=== PATIENT | female | born 1935 | race Caucasian/White ===

== ENCOUNTER → 2017-02-12 | Outpatient (CLI) | payer MEDICARE ==
[~2017-02-12] MED LIST: APIX5TAB PO; B6 PO; CHOL500020 PO; CYAN500L4 PO; FAMO20TA7 PO; FOLI20CA PO; GLUC1CAP48 PO; HYDR-3138 PO; LOSA1TAB16 PO; MAGN400T36 PO; METO-99 PO; METO5TAB2 PO; NAPR-874 PO; NAPR220T77 PO; ONDA-39 PO; SIMV20TA3 PO; SPIR25TA3 PO; UBID100C24 PO
== END | disposition home or self-care (01) ==
LOC: CVU 14:43
PROVIDERS: ATTEND Internal Medicine Cardiovascular Disease
DX: I08.3 Combined rheumatic disorders of mitral, aortic and tricuspid valves (principal); I37.1 Nonrheumatic pulmonary valve insufficiency; I51.7 Cardiomegaly; I48.91 Unspecified atrial fibrillation; E78.5 Hyperlipidemia, unspecified; G47.30 Sleep apnea, unspecified; Z79.01 Long term (current) use of anticoagulants
CPT/HCPCS: 93306

== ENCOUNTER 2018-04-21 17:08 | Emergency (ER) | payer MEDICARE ==
[~2018-04-21] VITALS: Ht 149.9 cm; Wt 94.0 kg
[~2018-04-21 17:08] MED LIST changes: -HYDR-3138 PO; +HYDR-3237 PO; -LOSA1TAB16 PO; +LOSA1TAB19 PO; -NAPR-874 PO; +NAPR250T6 PO; -ONDA-39 PO; +ONDA4TAB12 PO
[2018-04-21 18:07] LABS: BASOPHILS # (AUTO) 0.02 x10^3/uL (0-0.1); BASOPHILS % (AUTO) 0 % (0-1); EOSINOPHILS # (AUTO) 0.16 x10^3/uL (0-0.4); EOSINOPHILS % (AUTO) 2 % (1-7); LYMPHOCYTES # (AUTO) 0.89 x10^3/uL (1-3.4); LYMPHOCYTES % (AUTO) 14 % (22-44); MD NO; MEAN CORPUSCULAR HEMOGLOBIN 32.6 pg (27.0-34.8); MEAN CORPUSCULAR VOLUME 95.9 fL (80-100); MONOCYTES # (AUTO) 0.43 x10^3/uL (0.2-0.8); MONOCYTES % (AUTO) 6 % (2-9); NEUTROPHILS # (AUTO) 5.15 x10^3/uL (1.8-6.8); NEUTROPHILS % (AUTO) 78 % (42-75); PLATELET COUNT 114 x10^3/uL (130-400); RED BLOOD COUNT 3.99 x10^6/uL (3.82-5.3); RED CELL DISTRIBUTION WIDTH 13.9 % (9.6-15.2)
[2018-04-21 18:18] LABS: ALANINE AMINOTRANSFERASE 21 U/L (12-78); ALBUMIN 3.6 g/dL (3.4-5.0); ANION GAP 8 mmol/L (5-15); CALCIUM 9.3 mg/dL (8.5-10.1); CHLORIDE 113 mmol/L (98-107); CREATININE 1.26 mg/dL (0.55-1.02)
[2018-04-21 18:23] LABS: ALKALINE PHOSPHATASE 48 U/L (45-117); BILIRUBIN,TOTAL 0.4 mg/dL (0.2-1.0); TOTAL PROTEIN 6.6 g/dL (6.4-8.2); TROPONIN I < 0.015 ng/mL (0.000-0.045)
[2018-04-21 19:08] VITALS: BP 155/74
== END 2018-04-21 19:35 | disposition home or self-care (01) ==
LOC: ED 19:31
DX: I48.2 Chronic atrial fibrillation (principal); I10 Essential (primary) hypertension; Z79.01 Long term (current) use of anticoagulants
CPT/HCPCS: 36415; 71045; 80053; 83880; 84484; 85025; 93005; 99285

== ENCOUNTER 2018-04-21 17:10 | Emergency (ER) | payer MEDICARE | END 2018-04-21 17:17 | disposition left against medical advice (07) | LOC: ED 17:11 | DX: Z53.21 Procedure and treatment not carried out due to patient leaving prior to being seen by health care provider (principal) ==

== ENCOUNTER → 2018-05-18 | Outpatient (CLI) | payer MEDICARE ==
[~2018-05-18] MED LIST changes: -SPIR25TA3 PO; +SPIR25TA5 PO
== END | disposition home or self-care (01) ==
LOC: CFH 15:44
PROVIDERS: ATTEND Internal Medicine Cardiovascular Disease
DX: I08.2 Rheumatic disorders of both aortic and tricuspid valves (principal); I11.9 Hypertensive heart disease without heart failure; I48.91 Unspecified atrial fibrillation; E78.5 Hyperlipidemia, unspecified; R06.02 Shortness of breath
CPT/HCPCS: 93306

== ENCOUNTER → 2018-06-30 | Outpatient (CLI) | payer MEDICARE ==
[~2018-06-30] MED LIST changes: +OMNIPAQUE 350 MG/ML, 100ML BOTTLE ONE
== END | disposition home or self-care (01) ==
LOC: CFH 10:18
PROVIDERS: ATTEND Specialist
DX: I70.0 Atherosclerosis of aorta (principal); N28.1 Cyst of kidney, acquired; K76.0 Fatty (change of) liver, not elsewhere classified; I25.10 Atherosclerotic heart disease of native coronary artery without angina pectoris; C56.1 Malignant neoplasm of right ovary; Z90.710 Acquired absence of both cervix and uterus
CPT/HCPCS: 74177; Q9967

== ENCOUNTER 2018-11-27 13:29 | Outpatient (CLI) | payer MEDICARE ==
[~2018-11-27 13:29] MED LIST changes: -OMNIPAQUE 350 MG/ML, 100ML BOTTLE ONE
== END 2018-11-27 23:59 | disposition home or self-care (01) ==
LOC: CVU 13:29
PROVIDERS: ATTEND Internal Medicine Cardiovascular Disease
DX: R06.09 Other forms of dyspnea (principal); I48.91 Unspecified atrial fibrillation; E78.5 Hyperlipidemia, unspecified; R22.43 Localized swelling, mass and lump, lower limb, bilateral
CPT/HCPCS: 93970

== ENCOUNTER → 2019-09-23 | Outpatient (CLI) | payer MEDICARE ==
[~2019-09-23] MED LIST changes: +REGADENOSON 0.4 MG/5 ML SYRINGE ONE
== END | disposition home or self-care (01) ==
LOC: CFH 12:05
PROVIDERS: ATTEND Internal Medicine Cardiovascular Disease
DX: I48.91 Unspecified atrial fibrillation (principal); R06.02 Shortness of breath
CPT/HCPCS: 78452; 93017; A9502; J2785

== ENCOUNTER 2020-03-21 14:46 | Outpatient (CLI) | payer MEDICARE ==
[~2020-03-21 14:46] MED LIST changes: +ONDA-89 PO; -ONDA4TAB12 PO; -REGADENOSON 0.4 MG/5 ML SYRINGE ONE; +SIMV20TA19 PO; -SIMV20TA3 PO
== END 2020-03-21 23:59 | disposition home or self-care (01) ==
LOC: CFH 14:46
PROVIDERS: ATTEND Internal Medicine Cardiovascular Disease
DX: I08.3 Combined rheumatic disorders of mitral, aortic and tricuspid valves (principal); I10 Essential (primary) hypertension; I48.91 Unspecified atrial fibrillation
CPT/HCPCS: 93306

== ENCOUNTER 2020-07-29 17:21 | Inpatient (IN) | payer MEDICARE ==
[~2020-07-29] VITALS: Ht 152.4 cm; Wt 86.4 kg
--- NOTE | 2020-07-29 19:09 | NUR ---
PT STATING SHE WOULD PREFER TO NOT BE ADMITTED TO THE HOSPITAL, BUT ALSO IS WORRIED ABOUT GOING HOME ALONE AND NOT BEING ABLE TO WALK.
[2020-07-29] MEDS ORDERED: OXYcodone/APAP 5/325MG TABLET ONE (19:26)
[2020-07-29] MEDS ORDERED: ONDANSETRON ODT 4 MG ONE (19:26)
[2020-07-29] MEDS ORDERED: OXYcodone/APAP 5/325MG TABLET PO ONE (19:30)
[2020-07-29] MEDS ORDERED: ONDANSETRON ODT 4 MG PO ONE (19:30)
[2020-07-29] MEDS ORDERED: MORPHINE SULFATE 4 MG/ML, 1ML IVPush PRN (20:30)
[2020-07-29] MEDS ORDERED: ONDANSETRON 2MG/ML, 2ML IVPush PRN ×2 (20:30→21:00)
[2020-07-29 20:48] LABS: BASOPHILS % (AUTO) 2 % (0-1); EOSINOPHILS % (AUTO) 4 % (1-7); LYMPHOCYTES % (AUTO) 24 % (22-44); MEAN CORPUSCULAR HEMOGLOBIN 31.6 pg (27.0-34.8); MEAN CORPUSCULAR HGB CONC 32.5 g/dL (32.4-35.8); MEAN PLATELET VOLUME 8.3 fL (7.4-10.4); MONOCYTES % (AUTO) 7 % (2-9); NEUTROPHILS % (AUTO) 64 % (42-75); PLATELET COUNT 162 x10^3/uL (130-400); RED BLOOD COUNT 4.34 x10^6/uL (3.82-5.3); RED CELL DISTRIBUTION WIDTH 13.2 % (9.6-15.2)
[2020-07-29 20:55] LABS: ALBUMIN 3.7 g/dL (3.4-5.0); ANION GAP 4 mmol/L (5-15); CALCIUM 9.7 mg/dL (8.5-10.1); CHLORIDE 108 mmol/L (98-107); CREATININE 1.05 mg/dL (0.55-1.02)
[2020-07-29] MEDS ORDERED: LABETALOL 5MG/ML, 20ML IVPush PRN (21:00)
--- NOTE | 2020-07-29 21:00 | NUR ---
REPORT GIVEN TO FLACO BRYAN
[2020-07-29 21:05] LABS: MD NO
[2020-07-29] MEDS: [UNRECOGNIZED DRUG - REMARK] MC SCH (22:00)
[2020-07-29] MEDS: SIMVASTATIN 20 MG TABLET PO SCH (22:00)
[2020-07-29 22:02] VITALS: BP 161/101
[2020-07-29 23:00] VITALS: BP 155/91
[2020-07-30 00:41] VITALS: BP 147/87
[2020-07-30] MEDS: [UNRECOGNIZED DRUG - REMARK] MC SCH ×2 (06:00→13:35)
[2020-07-30 06:14] VITALS: BP 153/87
[2020-07-30] MEDS: LOSARTAN 50MG TABLET PO SCH (08:27)
[2020-07-30] MEDS: SPIRONOLACTONE 25 MG TABLET PO SCH (08:27)
[2020-07-30] MEDS: SENNA/DOCUSATE TABLET PO SCH (08:28)
[2020-07-30] MEDS ORDERED: APIXABAN 5 MG TABLET PO SCH (09:00)
[2020-07-30] MEDS: HYDROCHLOROTHIAZIDE 12.5 MG CAPSULE PO SCH (09:12)
[2020-07-30] MEDS: ACETAMINOPHEN 325 MG TABLET PO PRN (11:28)
[2020-07-30 11:53] VITALS: BP 170/89
[2020-07-30 13:23] VITALS: BP 145/90
[2020-07-30] MEDS: SIMVASTATIN 20 MG TABLET PO SCH (21:00)
[2020-07-30 21:23] VITALS: BP 149/82
[2020-07-30] MEDS: APIXABAN 5 MG TABLET PO SCH (22:03)
[2020-07-31 01:14] VITALS: BP 126/76
[2020-07-31 06:29] VITALS: BP 175/80
[2020-07-31] MEDS: SPIRONOLACTONE 25 MG TABLET PO SCH (07:52)
[2020-07-31] MEDS: APIXABAN 5 MG TABLET PO SCH (07:52)
[2020-07-31] MEDS: LOSARTAN 50MG TABLET PO SCH (07:52)
[2020-07-31] MEDS: SENNA/DOCUSATE TABLET PO SCH (07:53)
[2020-07-31] MEDS: HYDROCHLOROTHIAZIDE 12.5 MG CAPSULE PO SCH (07:53)
[2020-07-31 10:02] LABS: ALANINE AMINOTRANSFERASE 13 U/L (12-78); ANION GAP 6 mmol/L (5-15); CALCIUM 9.6 mg/dL (8.5-10.1); CHLORIDE 108 mmol/L (98-107); CREATININE 1.05 mg/dL (0.55-1.02)
[2020-07-31 10:04] LABS: ALKALINE PHOSPHATASE 56 U/L (45-117); BILIRUBIN,TOTAL 0.7 mg/dL (0.2-1.0); TOTAL PROTEIN 6.3 g/dL (6.4-8.2)
[2020-07-31 12:01] VITALS: BP 150/78
[2020-07-31] MEDS: LACTATED RINGERS 1,000 ML IV SCH (13:41)
[2020-07-31 18:33] VITALS: BP_SYST 140; BP_SYST 149; BP_DIAS 82
[2020-07-31] MEDS: SIMVASTATIN 20 MG TABLET PO SCH (21:46)
[2020-08-01 00:01] VITALS: BP 155/87
[2020-08-01] MEDS: LACTATED RINGERS 1,000 ML IV SCH (02:21)
[2020-08-01 06:10] LABS: ALBUMIN 3.1 g/dL (3.4-5.0); ANION GAP 5 mmol/L (5-15); CALCIUM 9.7 mg/dL (8.5-10.1); CHLORIDE 107 mmol/L (98-107)
[2020-08-01 06:16] LABS: ALANINE AMINOTRANSFERASE 12 U/L (12-78); ALKALINE PHOSPHATASE 54 U/L (45-117); BILIRUBIN,TOTAL 0.7 mg/dL (0.2-1.0); CREATININE 0.91 mg/dL (0.55-1.02); TOTAL PROTEIN 6.3 g/dL (6.4-8.2)
[2020-08-01 06:23] VITALS: BP 171/83
[2020-08-01] MEDS: SPIRONOLACTONE 25 MG TABLET PO SCH (08:09)
[2020-08-01] MEDS: LOSARTAN 50MG TABLET PO SCH (08:09)
[2020-08-01] MEDS: SENNA/DOCUSATE TABLET PO SCH (08:10)
[2020-08-01] MEDS ORDERED: CYCL-259 PO (10:47)
[2020-08-01] MEDS ORDERED: ACET325T26 PO (10:47)
[2020-08-01] MEDS ORDERED: AMLO10TA8 PO (10:47)
[2020-08-01] MEDS: AMLODIPINE 10 MG TAB PO SCH (10:51)
[2020-08-01] MEDS ORDERED: APIX5TAB PO (11:09)
[2020-08-01 12:37] VITALS: BP 158/84
[2020-08-01 18:25] VITALS: BP 155/89
[2020-08-01] MEDS: SIMVASTATIN 20 MG TABLET PO SCH (19:51)
[2020-08-02 00:04] VITALS: BP 149/83
[2020-08-02] MEDS: ACETAMINOPHEN 325 MG TABLET PO PRN (00:18)
[2020-08-02 06:24] VITALS: BP 167/99
[2020-08-02] MEDS: LOSARTAN 50MG TABLET PO SCH (08:14)
[2020-08-02] MEDS: SENNA/DOCUSATE TABLET PO SCH (08:14)
[2020-08-02] MEDS: AMLODIPINE 10 MG TAB PO SCH (08:14)
[2020-08-02] MEDS: SPIRONOLACTONE 25 MG TABLET PO SCH (08:14)
[2020-08-02] MEDS ORDERED: LOSARTAN 50MG TABLET PO SCH (09:00)
[2020-08-02 13:20] VITALS: BP 131/74
== END 2020-08-02 15:54 | DRG 562 ==
LOC: ED 18:51 → EDIP 20:17 → INTOOBSV 20:17 → OBSVTOIN 20:17 → 3N 21:46
PROVIDERS: ADMIT Family Medicine; ATTEND Internal Medicine
DX: S83.511A Sprain of anterior cruciate ligament of right knee, initial encounter (principal); N17.0 Acute kidney failure with tubular necrosis; D68.69 Other thrombophilia; E66.2 Morbid (severe) obesity with alveolar hypoventilation; S83.241A Other tear of medial meniscus, current injury, right knee, initial encounter; M25.461 Effusion, right knee; G89.29 Other chronic pain; Z68.37 Body mass index [BMI] 37.0-37.9, adult; E78.5 Hyperlipidemia, unspecified; I10 Essential (primary) hypertension; I48.0 Paroxysmal atrial fibrillation; M17.11 Unilateral primary osteoarthritis, right knee; I87.2 Venous insufficiency (chronic) (peripheral); Z85.43 Personal history of malignant neoplasm of ovary; Z90.710 Acquired absence of both cervix and uterus; Z90.49 Acquired absence of other specified parts of digestive tract
CPT/HCPCS: 36415; 80048; 80053; 82040; 85025; G0378; Q0162; J7120